=== PATIENT | male | born 1995 | race Caucasian/White ===

== ENCOUNTER 2021-07-27 09:26 | Emergency (ER) | payer BC ==
[~2021-07-27] VITALS: Ht 175.3 cm; Wt 96.2 kg
[2021-07-27 09:27] VITALS: BP 144/96
[2021-07-27] MEDS ORDERED: LIDOCAINE HCL 1% 20 ML VIAL ONE (10:52)
[2021-07-27] MEDS ORDERED: CEPH500B PO (12:12)
[2021-07-27] MEDS ORDERED: TETANUS/DIPHTHERIA TOXOID [ADULT] 0.5 ML VIAL IM ONE (12:19)
== END 2021-07-27 12:27 | disposition home or self-care (01) ==
LOC: EDH 09:26
DX: S61.211A Laceration without foreign body of left index finger without damage to nail, initial encounter (principal); W26.0XXA Contact with knife, initial encounter; Y93.9 Activity, unspecified; Y92.89 Other specified places as the place of occurrence of the external cause; Y99.8 Other external cause status
CPT/HCPCS: 12001; 90471; 90714